=== PATIENT | male | born 1945 | race Caucasian/White ===

== ENCOUNTER → 2016-09-15 | Outpatient (CLI) | payer MEDICARE, OTHER ==
[~2016-09-15] MED LIST: ACETAMINOPHEN PO; ALBUTEROL17 GM INH; AMLODIPINE BESY10 MG PO; CLARITIN D PO; ELIQUIS5 MG PO; FISH OIL 1,0001 CAP PO; LISINOPRIL-HCTZ1 T20 PO; LORTAB 5-325 M1 EACH PO; METOPROLOL TAR25 MG; PROVENTIL; SPIRIVA18 MCG INH; SYMBICORT INH; ZESTORETIC 10/11 TAB PO; ZOCOR PO; ZOCOR20 MG PO; ZYRTEC10 M1 PO
--- NOTE | ~2016-09-15 | US6 ---
[facility] A Service of [facility] RADIOLOGY TEXT RESULTS PATIENT: KELLIE LAZO LOCATION: [facility] : 46 UNIT #: [id number] AGE: [address]: CHER CHRISTINE APRN SEX: M ORDER DR: [id number] [address] [address] [id number] O MR#: [id number] Acc #: [id number] NAME: KELLIE LAZO : 1945 SEX: M STUDY DATE/TIME: 09/15/2016 10:30 UNIT: [facility] ROOM: STUDY DESCRIPTION: US Abdominal Limited Attending Physician: Cher Christine Aprn Referring Physician: Cher Christine Aprn Ordering Physician: Cher Christine Aprn Primary Care Physician: Cher Christine Aprn MEDICAL IMAGING REPORT This report is preliminary unless electronic signature is present. EXAM Right upper quadrant ultrasound, 09/15/2016. HISTORY Right upper quadrant tenderness and pain for 1 1/2 weeks. Pain extends to back. FINDINGS The liver is homogeneous in echotexture and demonstrates no cystic or solid mass lesions. The intra and extrahepatic bile ducts are not dilated. The gallbladder contains a small, nonmobile, nonshadowing, echogenic focus along its dependent portion. This could represent a polyp or sludge ball. No evidence of cholelithiasis. There is no gallbladder wall thickening or pericholecystic fluid. The common duct measures 3 mm. The pancreas is poorly visualized due to overlying bowel gas. The right kidney is normal. IMPRESSION 1. Probable small polyp or sludge ball within the gallbladder lumen. No evidence of cholelithiasis. 2. Poor visualization of the pancreas due to overlying bowel gas. Dictated by... Олег tSafford M.D. THIS IS AN ELECTRONICALLY VERIFIED REPORT Олег Stafford M.D. at 09/16/2016 8:10 AM JUSTIN/niko TD: 09/15/2016 17:21 [facility] A Service of [facility] RADIOLOGY TEXT RESULTS PATIENT: KELLIE LAZO LOCATION: [facility] #: [id number] : 46 UNIT #: [id number] AGE: [address]: CHER CHRISTINE APRN SEX: M ORDER DR: JOB #: [id number] MEDICAL IMAGING REPORT Page 1 of 1
== END | disposition home or self-care (01) ==
LOC: SGUS 09:54
DX: R10.811 Right upper quadrant abdominal tenderness (principal)
CPT/HCPCS: 76705

== ENCOUNTER → 2016-09-28 | Outpatient (CLI) | payer MEDICARE, OTHER ==
--- NOTE | ~2016-09-28 | NM22 ---
[facility] A Service of [facility] & [facility] RADIOLOGY TEXT RESULTS PATIENT: KELLIE LAZO LOCATION: [facility] : 46 UNIT #: [id number] AGE: [address]: CHER CHRISTINE APRN SEX: M ORDER DR: [id number] [facility] [address] [place], [place] [address] [id number] O MR#: [id number] Acc #: [id number] NAME: KELLIE LAZO. : 1945 SEX: M STUDY DATE/TIME: 09/28/2016 13:08 UNIT: [facility] ROOM: STUDY DESCRIPTION: NM Hepatobiliary W GB Pharm Attending Physician: Cher Christine Aprn Referring Physician: Cher Christine Aprn Ordering Physician: Cher Christine Aprn Primary Care Physician: Cher Christine Aprn MEDICAL IMAGING REPORT This report is preliminary unless electronic signature is present EXAM HIDA scan with Kinevac CCK 09/28/2016 HISTORY Right upper quadrant abdominal pain radiating to the back for 2 months. FINDINGS The patient received an intravenous injection of 4.76 mCi of technetium 99m tagged Choletec for hepatobiliary imaging. 1 hour following injection of the radiopharmaceutical the patient received an intravenous injection of 1.8 mcg of Kinevac. There is homogeneous distribution of the radiotracer throughout the liver. Gallbladder activity was seen by 15 minutes postinjection of the radiopharmaceutical. Following Kinevac injection the gallbladder ejection fraction was 72.6% (normal is greater than 30%). IMPRESSION Normal HIDA scan with gallbladder ejection fraction of 72.6% Dictated by... Олег Stafford M.D. THIS IS AN ELECTRONICALLY VERIFIED REPORT Олег Stafford M.D. at 09/29/2016 8:01 AM Elizabeth TD: 09/28/2016 14:40 JOB #: [id number] MEDICAL IMAGING REPORT Page 1 of 1 COPY
== END | disposition home or self-care (01) ==
LOC: CNUC 11:15
DX: R10.811 Right upper quadrant abdominal tenderness (principal)
CPT/HCPCS: 78227; A9537; J2805

== ENCOUNTER → 2016-10-06 | Outpatient (CLI) | payer MEDICARE, OTHER ==
--- NOTE | ~2016-10-06 | CT7 ---
[facility] A Service of [facility] & [facility] RADIOLOGY TEXT RESULTS PATIENT: KELLIE LAZO LOCATION: [facility] : 46 UNIT #: [id number] AGE: [address]: CHER CHRISTINE APRN SEX: M ORDER DR: [id number] [address] [address] [id number] O MR#: [id number] Acc #: [id number] NAME: KELLIE LAZO : 1945 SEX: M STUDY DATE/TIME: 10/06/2016 13:03 UNIT: [facility] ROOM: STUDY DESCRIPTION: CT Abdomen Wo Cont Attending Physician: Cher Christine Aprn Referring Physician: Cher Christine Aprn Ordering Physician: Cher Christine Aprn Primary Care Physician: Cher Christine Aprn MEDICAL IMAGING REPORT This report is preliminary unless electronic signature is present. EXAM CT abdomen. INDICATIONS Right upper quadrant abdominal pain. 2-month duration. TECHNIQUE CT of the abdomen without contrast. Coronal and sagittal reconstructions were obtained. This CT exam was performed with one or more of the following radiation dose reduction techniques: automatic exposure control, adjustment of mA and/or kV according to patient size, and iterative reconstruction. COMPARISON CT chest 05/11/2016. Hepatobiliary study 09/28/2016. Right upper quadrant ultrasound 09/15/2016. FINDINGS Noncontrast evaluation of the liver is within normal limits. There is a small cyst in the right hepatic lobe. There is a small partially calcified gallstone layering dependently within the bladder. Gallbladder is not distended. There is no intrahepatic or extrahepatic biliary dilatation. The pancreas, spleen, and adrenal glands are within normal limits. No renal calculi. There is an abnormal lymph node near the EG junction, measuring 1.9 x 1.7 cm. There is some associated eccentric wall thickening of the gastroesophageal junction. This has a polypoid mass-like appearance and should undergo further evaluation with either an esophagram or endoscopy. This area measures approximately 5.3 cm in length and terminates at the EG junction. The small bowel is not dilated. There are some left-sided colonic STS. [facility] A Service of [facility] & [facility] RADIOLOGY TEXT RESULTS PATIENT: KELLIE LAZO LOCATION: [facility] : 46 UNIT #: [id number] AGE: [address]: CHER CHRISTINE APRN SEX: M ORDER DR: diverticula. The abdominal aorta is normal in caliber. No acute osseous abnormalities. IMPRESSION 1. Polypoid mass-like thickening in the distal thoracic esophagus near the EG junction. This has an appearance concerning for a primary esophageal neoplasm. I would recommend either endoscopy or an esophagram to further evaluate. 2. There is abnormal lymph node near the EG junction measuring up to 1.7 cm, concerning for a metastasis. 3. Not mentioned above, there is a 0.7 pulmonary nodule in the right lower lobe. This was not present on a April 2016 exam; therefore, both benign and malignant etiologies should be considered. 4. These unexpected findings were called to the office of the patient's provider, Cookie Christine APRN, on 10/06/2016. Dictated by... Yadiel Lee M.D. THIS IS AN ELECTRONICALLY VERIFIED REPORT Yadiel Lee M.D. at 10/06/2016 2:27 PM HEIKE/lisa TD: 10/06/2016 13:45 JOB #: [id number] MEDICAL IMAGING REPORT Page 1 of 1
== END | disposition home or self-care (01) ==
LOC: SCT 11:23
DX: R10.811 Right upper quadrant abdominal tenderness (principal); R59.1 Generalized enlarged lymph nodes; R91.1 Solitary pulmonary nodule
CPT/HCPCS: 74150

== ENCOUNTER → 2016-10-07 | Day surgery (SDC) | payer MEDICARE, OTHER ==
--- NOTE | ~2016-10-07 | OR ---
Unit #: [id number] #: [id number] Patient: KELLIE LAZO [id number] [address] [place], [place] [address] [id number] O MR#: [id number] NAME: KELLIE LAZO. ROOM: Date of Procedure: 10/07/2016 Admission Date: 10/07/2016 Surgeon: Jerson Mulligan M.D. : 1945 Attending Physician: Jerson Mulligan M.D. Primary Care Physician: Della Stanley Aprn OPERATIVE REPORT ATTENDING PHYSICIAN Della Stanley APRN. PREOPERATIVE DIAGNOSES The patient was discovered to have a mass in the distal esophagus on the CT scan of the abdomen. He denies any history of dysphagia, but does mention history of interscapular pain. PROCEDURES PERFORMED 1. Upper gastrointestinal endoscopy and biopsy. 2. Upper gastrointestinal endoscopy and a dilation. POSTOPERATIVE DIAGNOSES 1. The patient had a large globular mass in the distal esophagus between 37 to 40 cm from the incisors. There was no cardiac extension of the mass. The mass was nearly obstructing. Multiple biopsies were obtained from the area and the lumen was dilated using a Savary dilator using guidewire up to 20 mm. 2. The patient also had moderate prepyloric antral erosive gastritis. 3. Focal patchy erosive duodenitis. 4. Rest of the examination up to third part of duodenum was normal. RECOMMENDATIONS The patient will be referred for XRT and chemotherapy and he has already seen Dr. Quezada for hypercalcemia and I will ask Dr. Quezada to see him in a short period of time. SEDATION USED MAC. DESCRIPTION OF PROCEDURE Following detailed explanation of the potential risks and complications of an upper endoscopy, namely perforation, bleeding, and complication related to sedation, the patient was brought to GI lab and laid in the left lateral decubitus position. Lubricated tip of the Olympus video upper endoscope was passed through the bite block into the proximal esophagus under direct vision. The entire esophageal mucosa was examined. The patient was noted to have a large nearly obstructing mass in the distal esophagus extending from 37 to 40 cm from the incisors just above the Z-line. It was partially obstructing the lumen. The scope was then advanced into the gastric cavity and the latter was insufflated. Mucosa Unit #: [id number] #: [id number] Patient: KELLIE LAZO of the fundus, body, and antrum was examined. The patient was noted to have moderate prepyloric antral erosive gastritis with erosions and erythema in the antral area. Pylorus was intubated with visualization of the duodenal bulb. The latter was noted to have focal patchy erosive duodenitis. Second and third part of duodenum were normal. Upon withdrawal and retroflexion; incisura, cardia, and greater curve was examined and a biopsy was obtained from the antrum for CLOtest. The scope was then withdrawn in the distal esophagus. Multiple biopsies were obtained from the tumor and sent for histology. It was extremely vascular and friable. We then passed a guidewire and the tip of the guidewire was passed into the antrum maintaining the tip of the guidewire in its position. The scope was gradually withdrawn. The Savary dilation of the malignant stricture was done using a 20 mm Savary dilator over the guidewire. Relook endoscopy showed excellent dilation. The scope and the accessories were then withdrawn and the patient returned to the recovery area. The patient was noted to have atrial fibrillation seemingly of new onset with ventricular rate in 90s. A 12-lead EKG was obtained to confirm the diagnosis and Dr. Michelle Han was asked to see the patient and she will shortly see the patient before the patient will be discharged home. Dictated by... Latoya Randall/kael TD: 10/07/2016 13:25 JOB #: [id number] CC: Latoya Tejeda M.D. OPERATIVE REPORT Page 1 of 1 X Jerson Mulligan MD X PROCEDURE OPERATIVE NOTE
--- NOTE | ~2016-10-07 | CO ---
Unit #: [id number] #: [id number] Patient: KELLIE SHAH [id number] [address] [place], [place] [address] [id number] O MR#: [id number] NAME: KELLIE SHAH. ROOM: Age: 71 Sex: M Admission Date: 10/07/2016 : 1945 Attending Physician: Jerson Mulligan M.D. Primary Care Physician: Della Stanley Aprn Consultation Date: 10/07/2016 CONSULTATION REPORT ATTENDING PHYSICIAN Della Stanley APRN. REASON FOR CONSULTATION Mass detected on the CAT scan recently. HISTORY OF PRESENT ILLNESS Mr. Shah is a very pleasant 71-year-old white gentleman, who attended along with his . For the past couple of months, the patient is complaining of uncomfortable sensation deep into his chest and interscapular area. It is not particularly related to meals. The patient denies any intermittent dysphagia or weight loss. During this evaluation, he has had multiple imaging studies and a CAT scan shows presence of possible mass in the distal esophagus. The patient is therefore direct scheduled for an endoscopy. PAST MEDICAL HISTORY Significant for history of hypertension, hyperlipidemia, bronchial asthma. The patient has had no prior abdominal surgeries. The patient has a recent bone marrow examination done by Dr. Chidi Quezada as outpatient. PAST SURGICAL HISTORY The patient has previous history of appendectomy. MEDICATIONS Include amlodipine, lisinopril and hydrochlorothiazide, Zocor, Symbicort, fish oil, Zyrtec, Spiriva and Proventil. ALLERGIES The patient has no known drug allergies. SOCIAL HISTORY Does not smoke or drink alcohol. Lives at home with his . FAMILY HISTORY None of colon, pancreatic cancer, or liver disease. REVIEW OF SYSTEMS Detailed review of organ systems does not reveal any recent weight loss. No history of fever, chills, or rigors. No history of headache, seizures, chest pain, or syncope. No history of cough, expectoration, or hemoptysis. No history of dysuria, hematuria, or pyuria. No history of focal seizures or extremity weakness. No history of skin rash, aphthous Unit #: [id number] #: [id number] Patient: CLIFTON,KELLIE F ulcers in the mouth, or reactive arthritis. PHYSICAL EXAMINATION GENERAL: He is awake, alert, and oriented, appears comfortable. VITAL SIGNS: Stable with a temperature of 97.2, pulse is 92 per minute and regular, respiratory rate 16, blood pressure 121/67, oxygen saturation is 95% on room air. He weighs 91.7 kg and appears well nourished. HEENT: He has no pallor, icterus, lymphadenopathy, or peripheral edema. CARDIOVASCULAR: Normal heart sounds. No murmurs on auscultation. LUNGS: Reveal normal breath sounds. Good air entry. ABDOMEN: Soft and nontender. Liver and spleen are not palpable. Bowel sounds normal. DIAGNOSTIC STUDIES LABORATORY RESULTS: Pending. IMAGING STUDIES: CAT scan of the abdomen shows a distal esophageal possible mass. CLINICAL IMPRESSION In view of the patient's symptomatology and CT findings, it will be pertinent to proceed an upper endoscopy and this is being scheduled shortly. Thank you for asking me to see this pleasant gentleman. I appreciate the consult. Dictated by... Latoya Randall/kael TD: 10/08/2016 17:11 JOB #: [id number] CC: Chidi Quezada M.D. CONSULTATION REPORT Page 1 of 1 X Jerson Mulligan MD X CONSULTATION REPORT
--- NOTE | ~2016-10-07 | EKG ---
PATIENT: KELLIE LAZO UNIT #: [id number] Ventricular Rate: 103 BPM Atrial Rate: 108 BPM QRS Duration: 84 ms Q-T Interval: 322 ms QTC Calculation(Bezet): 421 ms Calculated R Combs: 67 degrees Calculated T Combs: 18 degrees Diagnosis Line: Atrial fibrillation with rapid ventricular Diagnosis Line: response Diagnosis Line: Abnormal ECG Diagnosis Line: No previous ECGs available Diagnosis Line: Confirmed by LAURY SHAFER MD ([id number]) on Diagnosis Line: 10/08/2016 2:57:54 PM INTERPRETING MD: HASMUKH
--- NOTE | ~2016-10-07 | CO ---
Unit #: [id number] #: [id number] Patient: KELLIE LAZO [id number] [address] [place], [place] [address] [id number] O MR#: [id number] NAME: KELLIE LAZO. ROOM: Age: 71 Sex: M Admission Date: 10/07/2016 : 1945 Attending Physician: Jerson Mulligan M.D. Primary Care Physician: Della Stanley Aprn CONSULTATION REPORT REASON FOR CONSULTATION Atrial fibrillation. HISTORY OF PRESENT ILLNESS This is a 71-year-old white male, who presents for an elective EGD where he was found to have a large esophageal mass that is concerning for malignancy. He had some abdominal discomfort in his right upper quadrant that he felt was secondary to his gallbladder. The pain was worse after eating. He took Shay[place] and Tylenol and had some relief. During the procedure, the patient was noted to be in atrial fibrillation with rapid ventricular response with his rate up to 105 beats per minute. The patient was unaware of palpitations. He reported no dizziness, chest pain, or dyspnea. He has had no prior cardiac history or testing. His risk factors for ischemic heart disease includes hypertension, hyperlipidemia, and nicotine abuse. He does drink alcohol heavily. PAST MEDICAL HISTORY 1. Hypertension. 2. Hyperlipidemia. 3. COPD. 4. Obesity. 5. Former smoker. 6. ETOH use. PAST SURGICAL HISTORY 1. Appendectomy. 2. Back surgery. 3. Left cataract extraction. 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 He was also in the . He smoked one pack a day for 50 years or more, but quit a year ago. Admits to drinking at least six beers every other day. No illicit drug use. FAMILY HISTORY Mother had a stent with open heart surgery in the past. She is currently living well at age 89. Father from lung cancer. No coronary artery disease in his siblings. ALLERGIES No known drug allergies. HOME MEDICATIONS Unit #: [id number] #: [id number] Patient: KELLIE LAZO 1. Amlodipine 10 mg daily. 2. Lisinopril/hydrochlorothiazide 10/12.5 mg daily. 3. Simvastatin 20 mg daily. 4. Symbicort 160/4.5 mcg two puffs b.i.d. 5. Fish oil 1000 mg daily. REVIEW OF SYSTEMS CONSTITUTIONAL: Negative for fever or chills. Has no weight gain or weight loss. HEENT: No headache. No vision changes. Difficulty with swallowing. No dizziness. CARDIOVASCULAR: Has no symptoms of angina. Denies palpitations. No paroxysmal nocturnal dyspnea or orthopnea. Denies syncope or near-syncope. RESPIRATORY: Positive for dyspnea with exertion. No cough or hemoptysis. GASTROINTESTINAL: Positive for right upper quadrant pain. No nausea, vomiting, hematochezia, melena, or constipation. EXTREMITIES: Negative for lower extremity edema. PHYSICAL EXAMINATION VITAL SIGNS: Blood pressure 119/55, heart rate 101, weight is 91.7 kg. GENERAL: This is a mildly obese 71-year-old white male, who is in no acute distress. NEUROLOGIC: He is awake, alert, and oriented. There are no focal weaknesses. NECK: Trachea is in midline. No thyromegaly or lymphadenopathy. No jugular venous distention. HEART: S1 and S2. Heart sounds are distant. No murmurs. No rubs or clicks. Irregularly irregular rhythm. LUNGS: With faint expiratory wheezes with diminished breath sounds in both lungs. No rales. ABDOMEN: Soft and nontender with bowel sounds are present. No organomegaly. EXTREMITIES: With palpable pedal pulses, but no leg edema. SKIN: Warm and dry. DIAGNOSTIC STUDIES LABORATORY STUDIES: Glucose 100, BUN 9, creatinine 0.9, sodium 136, potassium 3.9. TSH 2.36, free T4 is 0.79, free T3 is 3.4. CARDIOVASCULAR STUDIES: Electrocardiogram shows atrial fibrillation with rapid ventricular response with a rate of 103 beats per minute with low-voltage QRS. There is nonspecific ST-wave abnormality. IMPRESSION 1. Right upper quadrant pain, status post esophagogastroduodenoscopy with a large esophageal mass. 2. Atrial fibrillation with rapid ventricular response of unknown duration. 3. Hypertension. 4. Hyperlipidemia. 5. Chronic obstructive pulmonary disease. 6. Obesity. 7. ETOH abuse. PLAN 1. Cardiology was consulted to see the patient for atrial fibrillation. The atrial fibrillation is unknown duration. He is mildly tachycardic. We will rate control with metoprolol 25 mg b.i.d. Unit #: [id number] #: [id number] Patient: KELLIE LAZO 2. It has been discussed with the patient about long-term anticoagulation. The patient is hesitant to start on anticoagulation, but will hold for now because of newly diagnosed esophageal mass. Per Dr. Mulligan, no anticoagulation for now. The patient is able to take anticoagulation for stroke prevention in the future, Romariorelesteban is on formulary at [place]. He has a CHADS2-VASc score of 2. 3. 2D echocardiogram will be done in the office on October 28 at 9:45 a.m. 4. TSH is unremarkable. 5. We will follow the patient in the office. Thank you for allowing us to assist in this patient's care. Dictated by... Kristyn Jameson/kael TD: 10/08/2016 12:57 JOB #: [id number] CC: Michelle Han M.D. CONSULTATION REPORT Page 1 of 1 X Orlando Amado APRN CONSULTATION REPORT
[2016-10-07 14:45] LABS: CALCIUM SERUM 10.1 mg/dL (8.4-10.2); CREATININE SERUM 0.9 mg/dL (0.6-1.4); GLOM FILT RATE Estimated 86.2 mL/min (>60); POTASSIUM 3.9 mmol/L (3.5-5.1)
[2016-10-07 15:01] LABS: FREE T3 3.4 pg/mL (2.5-3.9)
[2016-10-07 15:02] LABS: FREE THYROXIN (T4) 0.79 ng/dL (0.58-1.64)
== END | disposition home or self-care (01) ==
LOC: COPS 09:03
PROVIDERS: Internal Medicine Gastroenterology
DX: C16.0 Malignant neoplasm of cardia (principal); K29.80 Duodenitis without bleeding; K25.9 Gastric ulcer, unspecified as acute or chronic, without hemorrhage or perforation; J44.9 Chronic obstructive pulmonary disease, unspecified; Z87.891 Personal history of nicotine dependence; I48.91 Unspecified atrial fibrillation; I10 Essential (primary) hypertension; E78.5 Hyperlipidemia, unspecified; E66.9 Obesity, unspecified; F10.10 Alcohol abuse, uncomplicated; Z80.1 Family history of malignant neoplasm of trachea, bronchus and lung; Z79.51 Long term (current) use of inhaled steroids; Z79.899 Other long term (current) drug therapy; Z90.49 Acquired absence of other specified parts of digestive tract; Z98.42 Cataract extraction status, left eye; Z98.890 Other specified postprocedural states
CPT/HCPCS: 80048; 84439; 84443; 84481; 87077; 88305; 93005

== ENCOUNTER → 2016-10-12 | Outpatient (CLI) | payer MEDICARE, OTHER ==
--- NOTE | ~2016-10-12 | MR17 ---
[facility] A Service of [facility] & [facility] RADIOLOGY TEXT RESULTS PATIENT: KELLIE LAZO LOCATION: [facility] : 46 UNIT #: [id number] AGE: [address]: Chidi Quezada MD SEX: M ORDER DR: [id number] [facility] [address] [place], [place] [address] [id number] O MR#: [id number] Acc #: [id number] NAME: KELLIE LAZO. : 1945 SEX: M STUDY DATE/TIME: 10/12/2016 19:20 UNIT: [facility] ROOM: STUDY DESCRIPTION: MR Brain WWo Contrast Attending Physician: Chidi Quezada M.D. Referring Physician: Chidi Quezada M.D. Ordering Physician: Chidi Quezada M.D. Primary Care Physician: Della Stanley Aprn MRI CENTER REPORT This report is preliminary unless electronic signature is present. EXAM MRI of the brain with and without HISTORY Esophageal cancer in a 71-year-old male patient diagnosed at endoscopy on October 07, 2016. Observe for suspected intracranial metastatic disease. Patient does not have complaint of headache, dizziness, numbness, weakness or prior brain surgery. TECHNIQUE MRI of the brain was performed prior to and following intravenous administration of 19 mL of MultiHance. FINDINGS There is no evidence for a recent ischemic insult on the diffusion series. There is atrophy and there is a large area of encephalomalacia centered at the right posterolateral temporal lobe into the right anterolateral parietal occipital lobe. It measures about 6.5 x 3.7 cm axial plane and about 2.3 cm SI dimension. It is nonspecific but most likely due to a remote thromboembolic insult. Please correlate for any risk factors for thromboembolic disease or known history. There is no MRI evidence for intracranial hemorrhage. There is no extraaxial fluid collection. The flow void of the right internal carotid artery is abnormal at its petrous portion cavernous portion and supraclinoid portion. I suspect very slow flow or occlusion and this would be consistent with a prior ischemic insult to the right cerebral hemisphere. If more information is needed and this is not a known finding, patient could be best further assessed with either MR angiography or CT angiography. There is considerable signal abnormality within the brain stem centrally in the david, asymmetrically worse to the left side likely due to small vessel disease. Prominence of perivascular space is noted in addition to small basal ganglionic lacunes bilaterally. There is a focal lacunar disease [facility] A Service of [facility] & [facility] RADIOLOGY TEXT RESULTS PATIENT: KELLIE LAZO LOCATION: [facility] : 46 UNIT #: [id number] AGE: [address]: Chidi Quezada MD SEX: M ORDER DR: posterolaterally in the right basal ganglia contiguous with the area of encephalomalacia also. Patient has had cataract surgery on the left. The paranasal sinuses and mastoid air cells are clear. Tiny lacunes noted in the cerebellar hemisphere, asymmetric to the right and mild white matter signal abnormality most apparent in the periventricular white matter. IMPRESSION 1. No evidence for intracranial metastatic disease. 2. Large encephalomalacic area centered at the right posterolateral temporal lobe into the right anterolateral parietal occipital lobe most likely due to a remote thromboembolic insult. Please correlate for risk factors. Additionally there is an abnormal appearance to the right internal carotid artery flow void. I suspect the vessel is occluded or least has very slow flow and this would be consistent with a previous ischemic insult to the right cerebral hemisphere. If this is not a known diagnosis and more information with respect to the vasculature is needed for patient management purposes, I would recommend correlation with either a CT angiogram or MR angiogram of the head and neck vessels. 3. 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 Dictated by... Sarahi Wade M.D. THIS IS AN ELECTRONICALLY VERIFIED REPORT Sarahi Wade M.D. at 10/13/2016 2:56 PM SAC/to TD: 10/13/2016 12:56 JOB #: [id number] MRI CENTER REPORT Page 1 of 1 COPY
== END | disposition home or self-care (01) ==
LOC: CMRI 18:26
DX: C15.4 Malignant neoplasm of middle third of esophagus (principal); E83.52 Hypercalcemia; G93.89 Other specified disorders of brain
CPT/HCPCS: 70553; A9577

== ENCOUNTER → 2016-10-20 | Outpatient (CLI) | payer MEDICARE, OTHER ==
--- NOTE | ~2016-10-20 | MR134 ---
[facility] Service of [facility] RADIOLOGY TEXT RESULTS PATIENT: KELLIE LAZO LOCATION: [facility] : 47 UNIT #: [id number] AGE: [address]: Chidi Quezada MD SEX: M ORDER DR: [id number] [address] [address] [id number] O MR#: [id number] Acc #: [id number] NAME: KELLIE LAZO : 1945 SEX: M STUDY DATE/TIME: 10/20/2016 14:10 UNIT: [facility] ROOM: STUDY DESCRIPTION: MR MRA Neck Wo Contrast Attending Physician: Chidi Quezada M.D. Referring Physician: Chidi Quezada M.D. Ordering Physician: Chidi Quezada M.D. Primary Care Physician: Della Stanley Aprn [facility] CENTER REPORT This report is preliminary unless electronic signature is present. EXAM MR angiogram of the neck without contrast dated 10/20/2016. COMPARISON MRI brain dated 10/12/2016, MRA head dated 10/20/2016. HISTORY Abnormal MRI brain with possible right ICA occlusion. History of esophageal carcinoma diagnosed in 10/12/2016. No new complaints. FINDINGS Source and 3-D reconstruction MIP images of the neck are obtained without contrast. The visualized portions of the common carotid arteries are grossly patent with a diffuse mild decrease in the right common carotid artery caliber when compared to the left. Well-defined proximal stenosis could not be identified. The right internal carotid artery is not seen from the origin till the right ICA terminus intracranially. The left internal carotid artery demonstrates mild narrowing at its origin and it measures about 25 to 35% stenosis per NASCET criteria. Bilateral external carotid arteries demonstrate mild narrowing at the origin of the right external carotid artery but has good distal flow. The right vertebral artery is dominant. Bilateral vertebral arteries demonstrate expected flow in the visualized portions. Origins of bilateral vertebral arteries are not clearly seen. IMPRESSION 1. The right internal carotid artery is not seen from its origin all the way intracranially after the right ICA terminus. 2. Mild narrowing of the right external carotid artery origin without distal flow limitation. 25 to 35% focal short segment of narrowing of the left internal carotid artery bulb origin is seen per NASCET criteria. No decreased distal flow. 3. Origins of bilateral vertebral arteries are not well seen. [facility] A Service of [facility] RADIOLOGY TEXT RESULTS PATIENT: KELLIE LAZO LOCATION: [facility] : 47 UNIT #: [id number] AGE: [address]: Chidi Quezada MD SEX: M ORDER DR: Visualized portions appear to be unremarkable. 4. Findings were discussed with Dr. Beto Quezada at 04:15 p.m. on 10/20/2016. Dictated by... Digna Odell M.D. THIS IS AN ELECTRONICALLY VERIFIED REPORT Digna Odell M.D. at 10/26/2016 11:48 AM CPR/rnr TD: 10/20/2016 19:08 JOB #: [id number] MRI CENTER REPORT Page 1 of 1
--- NOTE | ~2016-10-20 | MR122 ---
[facility] A Service of [facility] RADIOLOGY TEXT RESULTS PATIENT: KELLIE LAZO LOCATION: [facility] : 47 UNIT #: [id number] AGE: [address]: Chidi Quezada MD SEX: M ORDER DR: [id number] [address] [address] [id number] O MR#: [id number] Acc #: [id number] NAME: KELLIE LAZO : 1945 SEX: M STUDY DATE/TIME: 10/20/2016 13:54 UNIT: [facility] ROOM: STUDY DESCRIPTION: MR MRA Head Wo Contrast Attending Physician: Chidi Quezada M.D. Referring Physician: Chidi Quezada M.D. Ordering Physician: Chidi Quezada M.D. Primary Care Physician: Della Stanley Apr[facility] CENTER REPORT This report is preliminary unless electronic signature is present. EXAM MR angiogram of the head without contrast dated 10/20/2016. COMPARISON MRI brain dated 10/12/2016, MRA neck dated 10/20/2016. HISTORY Abnormal MRI brain. Question occlusion of the right internal carotid artery. No significant complains of symptoms. History of esophageal carcinoma diagnosed on 10/12/2016. TECHNIQUE Source and 3-D reconstruction MIP images of the [place] were obtained without contrast. 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 There is distal reconstitution of the right anterior and middle cerebral artery via patent A-COM cross-filling from the left LORETA to the right LORETA. Bilateral ACAs appear to be symmetrical. The right MCA demonstrates little to no flow in the mid to distal right MCA sylvian and hemispheric branches. The right angular branch is not well seen. On the source images, there appears to be slightly more flow in the right MCA sylvian and hemispheric branches, when compared to the reconstruction MIP images. Left P-COM is seen. It feeds P2 and distal portions of the left [employer] with a very small left P1 segment. Right posterior cerebral artery and basilar artery are unremarkable. Right vertebral artery is dominant. No aneurysm or AVM. IMPRESSION 1. Right internal carotid artery is not seen from the imaged distal cervical segment all the way to the terminus. Minimal flow cannot be STS. [facility] A Service of [facility] RADIOLOGY TEXT RESULTS PATIENT: KELLIE LAZO LOCATION: [facility] : 47 UNIT #: [id number] AGE: [address]: Chidi Quezada MD SEX: M ORDER DR: excluded, but it is probably near complete to completely occluded. 2. There is reconstitution of the right LORETA and the right MCA via an A-COM cross-filling from the left LORETA to the right. 3. There appear to be a slightly decreased number of right MCA sylvian and hemispheric branches when compared to the left, based on the 3-D MIP images. There is some flow noted in the source images, but it is probably less. The visualized right M1 segment itself does not demonstrate any focal significant stenosis, and there is probably some narrowing of the right MCA sylvian branches. 4. No aneurysm or AVM. 5. Attempts are made to contact Dr. Beto Quezada at 03:45 p.m. on 10/20/2016. Findings were discussed with him within the next 30 minutes. Dictated by... Digna Odell M.D. THIS IS AN ELECTRONICALLY VERIFIED REPORT Digna Odell M.D. at 10/26/2016 11:32 AM CPR/lisa TD: 10/20/2016 19:05 JOB #: [id number] MRI CENTER REPORT Page 1 of 1
== END | disposition home or self-care (01) ==
LOC: SMRI 13:19
DX: C15.4 Malignant neoplasm of middle third of esophagus (principal); E83.52 Hypercalcemia
CPT/HCPCS: 70544; 70547

== ENCOUNTER → 2016-10-28 | Outpatient (CLI) | payer MEDICARE, OTHER ==
--- NOTE | ~2016-10-28 | XA91 ---
[facility] A Service of [facility] RADIOLOGY TEXT RESULTS PATIENT: KELLIE LAZO LOCATION: [facility] : 47 UNIT #: [id number] AGE: [address]: Chidi Quezada MD SEX: M ORDER DR: [id number] [facility] [address] [place], [place] [address] [id number] O MR#: [id number] Acc #: [id number] NAME: KELLIE LAZO : 1945 SEX: M STUDY DATE/TIME: 10/28/2016 9:10 UNIT: [facility] ROOM: STUDY DESCRIPTION: XA CVC Tunneled W Port Attending Physician: Chidi Quezada M.D. Referring Physician: Chidi Quezada M.D. Ordering Physician: Chidi Quezada M.D. Primary Care Physician: Della Stanley Aprn MEDICAL IMAGING REPORT This report is preliminary unless electronic signature is present STUDY Port-A-Cath insertion, 10/28/2016. HISTORY Esophageal cancer requiring chemotherapy. PROCEDURE Informed consent was obtained from the patient. The skin was prepped and draped in the standard sterile fashion, and sterile barrier draping was utilized, per protocol. The procedure was performed with caps, masks, sterile gloves and gowns. Real-time sterile ultrasound guidance was utilized, both to guide venous access and to confirm vessel patency. The total of 0.2 minutes of fluoroscopy time was utilizing and a single fluoroscopic spot image was obtained. After local anesthesia, the right internal jugular vein was accessed via standard Seldinger technique with real-time sterile ultrasound guidance. The track was then dilated over a guidewire and a peel-away sheath inserted. A chest pocket was created with a combination of blunt and sharp dissection after local anesthesia of the right upper chest wall. The Port-A-Cath hub was inserted into the pocket and the catheter tunneled to the venotomy site, measured and cut to length and inserted via the peel-away sheath. The venotomy was closed with deep 3-0 Vicryl fascial suture and N-butyl cyanoacrylate glue, and the pocket was closed with deep 3-0 Vicryl interrupted fascial suture and running 4-0 subcuticular Monocryl suture and N-butyl cyanoacrylate glue. The catheter was accessed. Blood return confirmed, the catheter was flushed and packed with Heparin solution. There were no complications, and the patient tolerated the procedure well. IMPRESSION Successful ultrasound and fluoroscopically guided insertion of a tunneled right IJ Ghpesi-E-Rlnl catheter without complication. [facility] A Service of [facility] RADIOLOGY TEXT RESULTS PATIENT: KELLIE LAZO [id number] 47 UNIT #: [id number] AGE: [address]: Chidi Quezada MD SEX: M ORDER DR: Dictated by... Rivera Gorman M.D. THIS IS AN ELECTRONICALLY VERIFIED REPORT Rivera Gorman M.D. at 11/02/2016 10:05 AM MARK/jmartha TD: 10/28/2016 19:06 JOB #: [id number] MEDICAL IMAGING REPORT Page 1 of 1 COPY
[2016-10-28 08:18] LABS: HEMATOCRIT 51.2 % (38.0-50.0); HEMOGLOBIN 16.6 gm/dL (13.0-16.0); MEAN CELL VOLUME 88.8 FL (83-96); MEAN CORPUSCULAR HEMOGLOBIN 28.8 PG (28-34); MEAN CORPUSCULAR HGB CONC 32.4 g/dL (30-36); RED BLOOD COUNT 5.76 X10e (3.90-5.60); RED CELL DISTRIBUTION WIDTH 14.4 % (11.0-15.5); WHITE BLOOD COUNT 10.8 X10e3 (4.0-10.5)
[2016-10-28 08:35] LABS: PARTIAL THROMBOPLASTIN TIME 28.3 SECONDS (23.5-31.3); PROTHROMBIN TIME (PATIENT) 11.3 SECONDS (10.0-11.7)
== END | disposition home or self-care (01) ==
LOC: CIVR 07:50
PROVIDERS: Internal Medicine Hematology
PROC: 05HM33Z Insertion of Infusion Device into Right Internal Jugular Vein, Percutaneous Approach (ICD-10-PCS; principal; 2016-10-28)
DX: C18.4 Malignant neoplasm of transverse colon (principal); E83.52 Hypercalcemia; Z45.2 Encounter for adjustment and management of vascular access device
CPT/HCPCS: 36415; 76937; 77001; 85027; 85610; 85730; C1788; C1894; J0690; J1642; J2250; J3010